=== PATIENT | male | born 1960 | race Caucasian/White ===

== ENCOUNTER → 2018-07-29 07:35 | Outpatient (CLI) | payer OTHER, SELFPAY ==
[2018-07-29 08:16] LABS: Add Manual Diff / Slide Review NO; Basophils Percent Auto 0.8 % (0-2); Eosinophils Percent Auto 3.6 % (2-4); Hemoglobin 16.3 g/dL (13.5-17.5); Lymphocytes Percent Auto 28.9 % (25-40); Mean Corpuscular HGB Conc 35.4 % (30-36); Mean Corpuscular Hemoglobin 31.9 PG (26-34); Mean Corpuscular Volume 90.1 fL (80-100); Monocytes Percent Auto 5.9 % (3-14); Neutrophils Absolute Auto 5000 /uL (3000-5900); Neutrophils Percent Auto 60.8 % (50-75); Platelet Count 298 X10^3/uL (150-400); Red Cell Distribution Width 12.5 % (11.6-14.8); White Blood Cell Count 8.3 X10^3/uL (4.5-11.0)
[2018-07-29 08:53] LABS: Alanine Aminotransferase 24 IU/L (21-72); Albumin 4.2 g/dL (3.5-5.0); Albumin Globulin Ratio 1.8 (1.0-2.8); Alkaline Phosphatase 92 U/L (38-126); Aspartate Aminotransferase 14 IU/L (17-59); BUN Creatinine Ratio 26.7 (6-22); Bilirubin Total 0.7 mg/dL (0.2-1.3); Blood Urea Nitrogen 16 mg/dL (9-20); Calcium 9.4 mg/dL (8.4-10.2); Carbon Dioxide 27 mmol/L (22-32); Chloride 100 mmol/L (98-107); Cholesterol 205 mg/dL (140-199); Estimated Glomerular Filt Rate > 60.0 mL/min (>60); Globulin 2.4 g/dL (1.7-4.1); Glucose 239 mg/dL (70-100); HDL Cholesterol 44 mg/dL (40-60); LDL Cholesterol Calculated 148 mg/dL (<100); Sodium 137 mmol/L (137-145); Total Protein 6.6 g/dL (6.3-8.2); Triglycerides 67 mg/dL (35-150)
[2018-07-29 08:56] LABS: Creatinine Urine Random 84.3 mg/dL
[2018-07-29 08:58] LABS: Microalbumi Creatinin Ratio Ur 40.3 ug/mg CR (<30); Microalbumin Urine Random 3.4 mg/dL (0-1.6)
[2018-07-29 09:05] LABS: Thyroid Stimulating Hormone 2.01 uIU/mL (0.47-4.68)
[2018-07-29 09:48] LABS: HEMOLYSIS < 15 (0-50); Prostate Specific Antigen 0.669 ng/mL (0.10-4.00)
== END ==
PROVIDERS: Family Provider Family Medicine; PCP Family Medicine; Visit Provider Family Medicine
DX: E11.9 Type 2 diabetes mellitus without complications (principal); E78.2 Mixed hyperlipidemia
CPT/HCPCS: 36415; 80053; 80061; 82043; 82570; 84153; 84443; 85025

== ENCOUNTER → 2018-08-03 10:43 | Outpatient (CLI) | payer OTHER, SELFPAY ==
[2018-08-03 13:07] LABS: Hemoglobin A1C% w Est Avg Glu 10.2 % (4.0-6.0)
== END ==
PROVIDERS: PCP Family Medicine; Visit Provider Family Medicine
DX: E11.9 Type 2 diabetes mellitus without complications (principal)
CPT/HCPCS: 36415; 83036

== ENCOUNTER → 2018-10-14 07:37 | Outpatient (CLI) | payer OTHER, SELFPAY ==
[2018-10-14 10:47] LABS: Hemoglobin A1C% w Est Avg Glu 8.2 % (4.0-6.0)
== END ==
PROVIDERS: PCP Family Medicine; Visit Provider Family Medicine
DX: E11.9 Type 2 diabetes mellitus without complications (principal)
CPT/HCPCS: 36415; 83036

== ENCOUNTER → 2019-03-17 07:27 | Outpatient (CLI) | payer OTHER, SELFPAY ==
[2019-03-17 08:14] LABS: Hemoglobin A1C% w Est Avg Glu 8.4 % (4.0-6.0)
== END ==
PROVIDERS: PCP Family Medicine; Visit Provider Family Medicine
DX: E11.9 Type 2 diabetes mellitus without complications (principal)
CPT/HCPCS: 36415; 83036

== ENCOUNTER 2019-08-17 11:41 | Emergency (ER) | payer OTHER, SELFPAY ==
[2019-08-17] VITALS (11 sets, daily range): BP systolic 131–187; BP diastolic 76–101; PULSE 67–99; RESP 16–18; TEMP 36.8; O2SAT 97–99
--- NOTE | 2019-08-17 11:46 | DI.RAD.S_ITS ---
PROCEDURE: XR CHEST 1V INDICATIONS: chest pain TECHNIQUE: One view of the chest was acquired. COMPARISON: [facility], , CHEST 2 VIEW, 08/04/2013, 8:50. FINDINGS: Surgical changes and devices: None. Lungs and pleura: Lungs are clear. No pleural effusions or pneumothorax. Mediastinum: Mediastinal contours appear normal. Heart size is normal. Bones and chest wall: No suspicious bony lesions. Overlying soft tissues appear unremarkable. IMPRESSION: No acute pulmonary process. Dictated by: Lakisha Donovan M.D. on 08/17/2019 at 12:15 Approved by: Lakisha Donovan M.D. on 08/17/2019 at 12:16
--- NOTE | 2019-08-17 11:59 | ED_ITS ---
HPI - Chest Pain General Chief Complaint: Chest Pain Stated Complaint: morrissey sent,possible heart issue Time Seen by Provider: 08/17/19 11:59 Source: patient Mode of arrival: Ambulatory History of Present Illness HPI narrative: 59-year-old gentleman with a history of diabetes High blood pressure High cholesterol who had an episode of chest pain 48 hours ago. 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 He became quite hot but does not describe diaphoresis. He got up and went outside to the cooler temperatures and felt better after approximately 5-10 minutes. He has not noticed increasing exertional dyspnea has not had any additional chest pain however after reading about his symptoms and doing more research in recognizing his high risk status given his medical history he opted to come to the emergency room for additional evaluation today. MD complaint: chest pain Onset (ago): day(s) Related Data Home Medications Medication Instructions Recorded Confirmed atorvastatin 80 mg PO QPM 08/17/19 08/17/19 Previous Rx's Medication Instructions Recorded miscellaneous medical supply #1 each 03/03/19 lisinopril 20 mg tablet 20 mg PO DAILY #90 tab 03/23/19 metformin 500 mg tablet 750 mg PO BID #360 tab 03/30/19 sildenafil 100 mg tablet See Rx Instructions .ROUTE 08/15/19 .COMPLEX #5 tablet Allergies Allergy/AdvReac Type Severity Reaction Status Date / Time No Known Drug Allergies Allergy Verified 03/30/19 15:41 Review of Systems Review of Systems Narrative: Negative except for HPI, otherwise unremarkable Patient History Social History Smoking Status: Current every day smoker Smoking Status: Current every day smoker alcohol intake frequency: 0-2 drinks per day Alcohol type: beer Substance Use Type: does not use Exam Initial Vital Signs Initial Vital Signs: Vital Signs Temperature 98.3 F 08/17/19 11:46 Pulse Rate 99 H 08/17/19 11:46 Respiratory Rate 18 08/17/19 11:46 Blood Pressure 187/96 H 08/17/19 11:46 Pulse Oximetry 99 08/17/19 11:46 Const General: cooperative and well developed Nutritional Appearance: well nourished Orientation: alert, awake, oriented x3 and not confused HENMT Head: normocephalic and atraumatic Ears: external ears normal and TM's normal bilaterally Nose: external nose normal and No nasal discharge Face and sinus: sinuses nontender, face symmetric, no sinus tenderness and No dry mucous membranes Mouth: oral mucosae normal and moist mucous membranes Teeth and gingiva: dentition normal Throat: tonsils normal and uvula midline Eyes General: appearance normal, both eyes and all related structures Eyelids: eyelids normal Conjunctivae: conjunctivae normal Sclera: sclerae normal Pupils: PERRL EOM: EOM intact bilaterally Neck Neck: normal visual inspection, trachea midline, No lymphadenopathy, No midline deformity and No JVD Lymphatic: No lymphedema Chest Chest: normal inspection of the chest Resp Effort & Inspection: normal respiratory effort, able to speak in complete sentences, no respiratory distress and no use of accessory muscles Auscultation: clear to auscultation bilaterally, no rales, no rhonchi and no wheezes Cardio Rate: regular rate Rhythm: regular rhythm Heart Sounds: no click, no gallops, no murmurs and no rubs Pulses: normal peripheral pulses GI Inspection: non-distended Palpation: soft, no hepatosplenomegaly, No guarding, No pulsatile mass and No tender Auscultation: normal bowel sounds Back/Spine/Pelvis Back: No CVA tenderness Cervical Spine: cervical ROM normal and No pain with cervical ROM Thoracic/Lumbar Spine: thoracic and lumbar spine normal to inspection Skin General: no rashes or lesions noted, No jaundice and No petechiae Neuro General: alert, oriented x3, gait normal and no focal motor deficits Speech: speech normal Extrem General: full ROM, no clubbing, cyanosis or edema, no pedal edema and no calf tenderness Psych Appearance: well kempt Mental Status: mental status grossly normal Attitude: cooperative Thought Content: normal and suicidality Judgment: judgment good Course Orders Ordered: ED Orders 08/17/19 11:46 XR chest 1V Stat EKG-12 Lead Stat 08/17/19 12:00 Complete Blood Count AUTO DIFF Stat Comprehensive Metabolic Panel Stat Lipase Stat Partial Thromboplastin Time Stat Prothrombin Time INR Stat Troponin & CK Cardiac Panel Stat 08/17/19 14:14 Troponin I Stat Heparin Sodium/Dextrose (Heparin Drip) 25,000 unit in 500 mls @ 19.051 mls/hr IV CONT ASHLEIGH; Protocol Last Admin: 08/17/19 16:52 Dose: 12 units/kg/hr, 19.051 mls/hr Documented by: TIM Discontinued Medications Heparin Sodium (Porcine) (Heparin) 6,400 unit 80 unit/kg (6400 unit) IV NOW ONE Stop: 08/17/19 16:22 Last Admin: 08/17/19 16:50 Dose: 6,400 unit Documented by: TIM Metoprolol Tartrate (Lopressor) 25 mg PO NOW ONE Stop: 08/17/19 12:07 Last Admin: 08/17/19 12:40 Dose: 25 mg Documented by: TIM Reevaluation(s) Reevaluation #1: Labs reviewed. Creatinine is normal however troponin is elevated at 0.039. Given that his cardiac episode was almost 48 hours ago will repeat at 2:00 a.m.. Patient remains stable and pain-free at this time blood pressure and heart rate have come down nicely with p.o. metoprolol Time: 13:52 Reevaluation #2: Remains pain-free. Troponin is reviewed with him. Will recheck a 2nd troponin questions are answered his is in the room and details are shared with her as well Time: 14:09 Reevaluation #3: Second troponin is increasing and is up to 0.045 from 0.039 He remains symptomatic and is feeling well however with the troponin increasing the possibility of acute coronary syndrome certainly increases. We will place him on a heparin drip and and reaching out to Cardiology at [facility] to arrange for transfer. He does have [place] insurance will check with their referral physician 1st. As his troponin is increasing the possibility of heart catheterization certainly increases and [facility] would not be an appropriate admitting site hospital Time: 16:50 Additional Reevaluation(s): In discussed with his [place] review physician. Also reviewed with patient and his . Will proceed with heparin drip and finding him Hospital for admission Vital Signs Vital signs: Vital Signs - 8 hr 08/17/19 11:46 08/17/19 12:00 08/17/19 13:00 Temperature 98.3 F Pulse Rate 99 H 86 84 Respiratory Rate 18 Blood Pressure 187/96 H Blood Pressure [Left Arm] 184/101 H 135/76 Pulse Oximetry 99 99 99 08/17/19 14:33 08/17/19 15:00 08/17/19 15:02 Temperature Pulse Rate 68 68 67 Respiratory Rate 16 18 Blood Pressure Blood Pressure [Left Arm] 131/78 150/92 H 150/92 H Pulse Oximetry 98 98 99 08/17/19 15:30 08/17/19 16:07 08/17/19 17:00 Temperature Pulse Rate 68 76 72 Respiratory Rate 16 Blood Pressure Blood Pressure [Left Arm] 153/88 H 151/93 H 150/87 H Pulse Oximetry 98 98 97 MDM - Chest Pain Medical Records Data Attestation: I reviewed the patient's medical records. Lab Data Attestation: I reviewed the patient's lab results. Result diagrams: 08/17/19 12:00 08/17/19 12:00 Labs: Lab Results 08/17/19 08/17/19 08/17/19 Range/Units 12:00 12:00 12:00 WBC 9.4 (4.5-11.0) X10^3/uL RBC 5.11 (4.5-5.9) X10^6/uL Hgb 16.6 (13.5-17.5) g/dL Hct 47.3 (41-53) % MCV 92.6 (80-100) fL MCH 32.6 (26-34) PG MCHC 35.2 (30-36) % RDW 12.6 (11.6-14.8) % Plt Count 239 (150-400) X10^3/uL Neut % (Auto) 66.6 (50-75) % Lymph % (Auto) 24.7 L (25-40) % [place] % (Auto) 5.7 (3-14) % Eos % (Auto) 2.3 (2-4) % Baso % (Auto) 0.7 (0-2) % Neut # (Auto) 6300 (6680-3447) /uL Lymph # (Auto) 2300 (1883-6345) /uL [place] # (Auto) 500 (0-900) /uL Eos # (Auto) 200 (0-450) /uL Baso # (Auto) 100 (0-100) /uL PT 10.4 (10.1-12.7) SECONDS INR 0.9 (0.9-1.3) APTT 33 (26.4-36.2) SECONDS Sodium 137 (137-145) mmol/L Potassium 3.8 (3.4-5.1) mmol/L Chloride 101 (98-107) mmol/L Carbon Dioxide 27 (22-32) mmol/L BUN 16 (9-20) mg/dL Creatinine 0.60 L (0.66-1.25) mg/dL Estimated GFR > 60.0 (>60) mL/min BUN/Creatinine Ratio 26.7 H (6-22) Glucose 200 H (70-100) mg/dL Calcium 10.0 (8.4-10.2) mg/dL Total Bilirubin 1.0 (0.2-1.3) mg/dL AST 24 (17-59) IU/L ALT 20 (<50) IU/L Alkaline Phosphatase 97 (38-126) U/L Total Creatine Kinase 73 (55-170) U/L CK-MB (CK-2) TNP CK-MB (CK-2) Rel Index TNP Troponin I 0.039 H (0.01-0.034) ng/mL Total Protein 7.6 (6.3-8.2) g/dL Albumin 4.7 (3.5-5.0) g/dL Globulin 2.9 (1.7-4.1) g/dL Albumin/Globulin Ratio 1.6 (1.0-2.8) Lipase 71 (23-300) U/L 08/17/19 Range/Units 14:14 WBC (4.5-11.0) X10^3/uL RBC (4.5-5.9) X10^6/uL Hgb (13.5-17.5) g/dL Hct (41-53) % MCV (80-100) fL MCH (26-34) PG MCHC (30-36) % RDW (11.6-14.8) % Plt Count (150-400) X10^3/uL Neut % (Auto) (50-75) % Lymph % (Auto) (25-40) % [place] % (Auto) (3-14) % Eos % (Auto) (2-4) % Baso % (Auto) (0-2) % Neut # (Auto) (1500-6553) /uL Lymph # (Auto) (7818-4782) /uL [place] # (Auto) (0-900) /uL Eos # (Auto) (0-450) /uL Baso # (Auto) (0-100) /uL PT (10.1-12.7) SECONDS INR (0.9-1.3) APTT (26.4-36.2) SECONDS Sodium (137-145) mmol/L Potassium (3.4-5.1) mmol/L Chloride (98-107) mmol/L Carbon Dioxide (22-32) mmol/L BUN (9-20) mg/dL Creatinine (0.66-1.25) mg/dL Estimated GFR (>60) mL/min BUN/Creatinine Ratio (6-22) Glucose (70-100) mg/dL Calcium (8.4-10.2) mg/dL Total Bilirubin (0.2-1.3) mg/dL AST (17-59) IU/L ALT (<50) IU/L Alkaline Phosphatase (38-126) U/L Total Creatine Kinase (55-170) U/L CK-MB (CK-2) CK-MB (CK-2) Rel Index Troponin I 0.045 H (0.01-0.034) ng/mL Total Protein (6.3-8.2) g/dL Albumin (3.5-5.0) g/dL Globulin (1.7-4.1) g/dL Albumin/Globulin Ratio (1.0-2.8) Lipase (23-300) U/L ECG Data Attestation: I personally reviewed and interpreted this ECG as follows: Interpretation: Normal sinus rhythm at a rate of 96. QTC 408 milliseconds. Normal axis. Mild ST depression in V2 through V6 with no reciprocal changes. No acute ischemia. Discharge Plan Departure Patient Disposition: [facility] Clinical Impression: Unstable angina pectoris, Elevated troponin Activity Restrictions/Additional Instructions: Discussion with Dr. Poole, [place] physician. Has arranged for cardiac admission to [facility] in [place]. Dr. King is the accepting doctor. [place] nurses will make arrangements for transfer. Cover forms will be filled out. Anticipated arrival of transport is 6:30 p.m. tonight Prescriptions: No Action sildenafil 100 mg tablet See Rx Instructions .ROUTE .COMPLEX Qty: 5 RF: 7 (DME) Blood Pressure Cuff misc See Dose Instructions .ROUTE .MEDSUPPLY Qty: 1 RF: 0 lisinopril 20 mg tablet 20 mg PO DAILY Qty: 90 RF: 1 metformin [Glucophage] 500 mg tablet 750 mg PO BID Qty: 360 RF: 3 atorvastatin 80 mg tablet 80 mg PO QPM RF: 0 Referrals: Piter Morrissey MD [Primary Care Provider] -
[2019-08-17 12:05] LABS: Add Manual Diff / Slide Review NO; Basophils Absolute Auto 100 /uL (0-100); Basophils Percent Auto 0.7 % (0-2); Eosinophils Absolute Auto 200 /uL (0-450); Eosinophils Percent Auto 2.3 % (2-4); Hematocrit 47.3 % (41-53); Hemoglobin 16.6 g/dL (13.5-17.5); Lymphocytes Absolute Auto 2300 /uL (1100-4500); Lymphocytes Percent Auto 24.7 % (25-40); Mean Corpuscular HGB Conc 35.2 % (30-36); Mean Corpuscular Hemoglobin 32.6 PG (26-34); Mean Corpuscular Volume 92.6 fL (80-100); Monocytes Absolute Auto 500 /uL (0-900); Monocytes Percent Auto 5.7 % (3-14); Neutrophils Absolute Auto 6300 /uL (1500-7000); Neutrophils Percent Auto 66.6 % (50-75); Platelet Count 239 X10^3/uL (150-400); Red Blood Cell Count 5.11 X10^6/uL (4.5-5.9); Red Cell Distribution Width 12.6 % (11.6-14.8); White Blood Cell Count 9.4 X10^3/uL (4.5-11.0)
[2019-08-17 12:12] LABS: INR 0.9 (0.9-1.3); Prothrombin Time 10.4 SECONDS (10.1-12.7)
[2019-08-17 12:15] LABS: PTT Partial Thromboplastin Tim 33 SECONDS (26.4-36.2)
[2019-08-17 12:19] LABS: Alanine Aminotransferase 20 IU/L (<50); Albumin 4.7 g/dL (3.5-5.0); Albumin Globulin Ratio 1.6 (1.0-2.8); Alkaline Phosphatase 97 U/L (38-126); Aspartate Aminotransferase 24 IU/L (17-59); BUN Creatinine Ratio 26.7 (6-22); Blood Urea Nitrogen 16 mg/dL (9-20); Carbon Dioxide 27 mmol/L (22-32); Chloride 101 mmol/L (98-107); Creatine Kinase 73 U/L (55-170); Estimated Glomerular Filt Rate > 60.0 mL/min (>60); Globulin 2.9 g/dL (1.7-4.1); Glucose 200 mg/dL (70-100); HEMOLYSIS < 15 (0-50); Lipase 71 U/L (23-300); Potassium 3.8 mmol/L (3.4-5.1); Sodium 137 mmol/L (137-145); Total Protein 7.6 g/dL (6.3-8.2)
[2019-08-17 12:30] LABS: Troponin I 0.039 ng/mL (0.01-0.034)
[2019-08-17] MEDS: METOPROLOL IR 25 MG TABLET PO (12:40)
[2019-08-17 14:44] LABS: Troponin I 0.045 ng/mL (0.01-0.034)
[2019-08-17] MEDS: HEPARIN 5,000 UNIT/ML VIAL 6400 UNIT IV (16:50)
[2019-08-17] MEDS: HEPARIN DRIP 25,000 UNIT/500 ML IV.SOLN 19.051 UNIT IV (16:52)
--- NOTE | 2019-09-16 13:58 | PC.NURSE ---
Patient received Heparin drip here in ER that started at 1652 at 19.051ml/hr (12 units/kg/hr). He departed the ED with EMS at 1828. The Heparin drip was stopped here at 1828 after the patient had received 11.4ml. It was restarted by EMS in transport.
== END 2019-08-17 18:28 | disposition short-term general hospital (02) ==
PROVIDERS: Emergency Provider Emergency Medicine; PCP Family Medicine
DX: I20.0 Unstable angina (principal); I10 Essential (primary) hypertension; R79.89 Other specified abnormal findings of blood chemistry
CPT/HCPCS: 36415; 71045; 80053; 82550; 83690; 84484; 85025; 85610; 85730; 93005; 96365; 96366; 96375; 99284; 99285; J1644

== ENCOUNTER → 2020-11-05 07:44 | Outpatient (CLI) | payer OTHER, SELFPAY ==
--- NOTE | 2020-11-05 | DI.RAD.S_ITS ---
PROCEDURE: XR FINGER LT MIN 2V INDICATIONS: Left Thumb Pain TECHNIQUE: AP hand, 2 views of the 1st finger(s) acquired. COMPARISON: None. FINDINGS: Bones: No fractures or dislocations. No suspicious bony lesions. Soft tissues: No suspicious soft tissue calcifications. IMPRESSION: No definite radiographic abnormality. If pain persists with conservative management, consider cross sectional imaging such as CT or MRI for further assessment. Dictated by: Edgardo Dumont [facility] Interpreted: Rehana Miles MD on 11/05/2020 at 16:50 Approved by: Rehana Miles M.D. on 11/05/2020 at 17:00
[2020-11-05 08:52] LABS: Alanine Aminotransferase 40 IU/L (<50); Albumin 4.2 g/dL (3.5-5.0); Albumin Globulin Ratio 1.8 (1.0-2.8); Alkaline Phosphatase 60 U/L (38-126); Aspartate Aminotransferase 30 IU/L (17-59); Bilirubin Total 0.5 mg/dL (0.2-1.3); Blood Urea Nitrogen 17 mg/dL (9-20); Calcium 9.7 mg/dL (8.4-10.2); Carbon Dioxide 29 mmol/L (22-32); Chloride 101 mmol/L (98-107); Estimated Glomerular Filt Rate > 60.0 mL/min (>60); Globulin 2.4 g/dL (1.7-4.1); Glucose 174 mg/dL (70-100); HEMOLYSIS < 15 (0-50); Potassium 5.2 mmol/L (3.4-5.1); Sodium 136 mmol/L (137-145); Total Protein 6.6 g/dL (6.3-8.2)
== END ==
PROVIDERS: PCP Internal Medicine; Referring Provider Internal Medicine Cardiovascular Disease; Visit Provider Internal Medicine Cardiovascular Disease
DX: E78.5 Hyperlipidemia, unspecified (principal); M79.645 Pain in left finger(s)
CPT/HCPCS: 36415; 73140; 80053

== ENCOUNTER → 2020-11-22 07:56 | Outpatient (CLI) | payer OTHER, SELFPAY ==
[2020-11-22 09:45] LABS: BUN Creatinine Ratio 16.4 (6-22); Blood Urea Nitrogen 12 mg/dL (9-20); Calcium 9.6 mg/dL (8.4-10.2); Carbon Dioxide 30 mmol/L (22-32); Chloride 102 mmol/L (98-107); Estimated Glomerular Filt Rate > 60.0 mL/min (>60); Glucose 150 mg/dL (70-100); HEMOLYSIS < 15 (0-50); Potassium 4.5 mmol/L (3.4-5.1); Sodium 135 mmol/L (137-145)
== END ==
PROVIDERS: PCP Internal Medicine; Referring Provider Internal Medicine Cardiovascular Disease; Visit Provider Internal Medicine Cardiovascular Disease
DX: I10 Essential (primary) hypertension (principal)
CPT/HCPCS: 36415; 80048

== ENCOUNTER → 2021-01-31 15:35 | Outpatient (CLI) | payer OTHER, SELFPAY ==
[2021-01-31] MEDS: COVID-19 VACC, Ad26(JANSSEN)/PF 0.5 ML IM (15:42)
== END ==
PROVIDERS: PCP Internal Medicine; Visit Provider Internal Medicine
DX: Z23 Encounter for immunization (principal)
CPT/HCPCS: 0031A; 91303

== ENCOUNTER → 2021-08-14 13:44 | Outpatient (CLI) | payer OTHER, SELFPAY ==
--- NOTE | 2021-08-14 | DI.MRI.S_ITS ---
PROCEDURE: MR HAND LT WO CON INDICATIONS: Dislocation of carpometacarpal joint of left thumb TECHNIQUE: Noncontrast coronal T1 spin echo and T2 fast spin echo with fat saturation, axial proton density fast spin echo and T2 fast spin echo with fat saturation, sagittal T1 spin echo and STIR through the hand and fingers. COMPARISON: None. FINDINGS: Image quality: Excellent. Bones: The bones are normally aligned, without marrow contusions or fractures. No intra-osseous lesions. Partial-thickness cartilage loss and mild marginal osteophyte formation is seen in the 1st carpometacarpal joint. Mild degenerative changes also noted at the 1st metacarpophalangeal joint. Soft tissues: Visualized muscles demonstrate normal bulk and internal signal. No intramuscular masses identified. 4 x 2 mm ganglion cyst is seen dorsal to the carpal tunnel at the level of the 4th metacarpal shaft. Mild tendinosis of the extensor carpi ulnaris tendon is seen. There is focal fluid signal within the flexor pollicis longus tendon just proximal to the metacarpophalangeal joint that is suspicious for partial intrasubstance tearing. The radial and ulnar collateral ligaments at the 1st carpometacarpal joint appear to be intact. The dorsal and volar plates are intact. IMPRESSION: 1. Focal partial intrasubstance tear of the flexor pollicis longus tendon just proximal to the level of the metacarpophalangeal joint. 2. No acute trabecular bone injury or fracture. Osseous structures are normally aligned. No significant ligament injury is seen at the 1st carpometacarpal joint. 3. Mild degenerative changes of the 1st carpometacarpal joint and 1st metacarpophalangeal joint. 4. Mild extensor carpi ulnaris tendinosis. Dictated by: Anthony Contreras M.D. on 08/14/2021 at 16:09 Approved by: Anthony Contreras M.D. on 08/14/2021 at 16:20
== END ==
PROVIDERS: PCP Internal Medicine; Referring Provider Internal Medicine; Visit Provider Internal Medicine
DX: S63.045A Dislocation of carpometacarpal joint of left thumb, initial encounter (principal); S66.012A Strain of long flexor muscle, fascia and tendon of left thumb at wrist and hand level, initial encounter; M79.645 Pain in left finger(s); X58.XXXA Exposure to other specified factors, initial encounter
CPT/HCPCS: 73218

== ENCOUNTER → 2021-12-09 07:12 | Outpatient (CLI) | payer OTHER, SELFPAY ==
[2021-12-09 09:25] LABS: Blood Urea Nitrogen 29 mg/dL (9-20); Calcium 10.2 mg/dL (8.4-10.2); Carbon Dioxide 27 mmol/L (22-32); Chloride 97 mmol/L (98-107); Estimated Glomerular Filt Rate > 60.0 mL/min (>60); Glucose 230 mg/dL (80-110); HEMOLYSIS < 15 (0-50); Potassium 5.2 mmol/L (3.4-5.1); Sodium 134 mmol/L (137-145)
[2021-12-15 20:41] LABS: Prostate Specific Antigen 0.713 ng/mL (0.10-4.00)
== END ==
PROVIDERS: PCP Internal Medicine; Referring Provider Internal Medicine Cardiovascular Disease; Visit Provider Internal Medicine Cardiovascular Disease
DX: Z95.5 Presence of coronary angioplasty implant and graft (principal); I10 Essential (primary) hypertension
CPT/HCPCS: 36415; 80048; 84153